=== PATIENT | female | born 1945 | race Caucasian/White ===

== ENCOUNTER 2019-08-12 07:06 | Observation (INO) | payer MEDICARE ==
[~2019-08-12] VITALS: Ht 149.9 cm; Wt 73.2 kg
[~2019-08-12 07:06] MED LIST: ACETAMINOPHEN500 MG PO; AMLO5 PO; CHOL10002 PO; CRUTCH2 USE; GABA100 PO; GABA300 PO; HYDACE5 PO; IBANDRONATE SO150 MG PO; IBUP400 PO; LEVSOD100; LEVSOD50 PO; LISI10 PO; LORA1 PO; LORA2 PO; METO25ER PO; MULVITMIND PO; Motion Sickness25 M1 PO; NAPR550 PO; ONDA4ODT MM; Omega 3 1,0001 EACH PO; PANT40 PO; PERI4 PO; PRIM50 PO; RXLORA1 PO; SERT50 PO; SIMV10 PO; SIMV20 PO; SIMV5 PO; UBID100 PO; Zofran Odt4 MG SL
[2019-08-12 08:05] LABS: BASOPHILS ABSOLUTE AUTO 0.04 K/mm3 (0.00-0.23); BASOPHILS PERCENT AUTO 0 % (0-2); EOSINOPHILS ABSOLUTE AUTO 0.25 K/mm3 (0.00-0.68); EOSINOPHILS PERCENT AUTO 3 % (0-6); Hematocrit 46.9 % (33.0-51.0); Hemoglobin 15.3 g/dL (11.5-16.0); IMMATURE GRAN ABSOLUTE AUTO 0.08 K/mm3 (0.00-0.10); IMMATURE GRAN PERCENT AUTO 1 % (0-1); LYMPHOCYTES ABSOLUTE AUTO 2.49 K/mm3 (0.84-5.20); LYMPHOCYTES PERCENT AUTO 26 % (21-46); MONOCYTES ABSOLUTE AUTO 0.41 K/mm3 (0.16-1.47); MONOCYTES PERCENT AUTO 4 % (4-13); Mean Corpuscular HGB Conc 32.6 g/dL (31.5-36.5); Mean Corpuscular Volume 89 fL (80-100); Mean Platelet Volume 10.6 fL (9.1-12.4); NEUTROPHILS ABSOLUTE AUTO 6.17 K/mm3 (1.96-9.15); NEUTROPHILS PERCENT AUTO 66 % (41-73); Platelet Count 271 K/mm3 (150-400); RDW Coefficient Variation 13.7 % (11.7-14.2); RDW Standard Deviation 44.5 fL (35.1-46.3); Red Blood Cell Count 5.28 M/mm3 (3.80-5.20); White Blood Cell Count 9.44 K/mm3 (4.00-11.30)
[2019-08-12 08:41] LABS: Alanine Aminotransfer (ALT/SGP 23 U/L (12-78); Albumin, Blood 4.1 g/dL (3.4-5.0); Alk Phos 94 U/L (50-136); Anion Gap 8 mmol/L (6-16); Aspartate Aminotrans (AST/SGOT 13 U/L (12-37); Bilirubin, Total 0.5 mg/dL (0.1-1.0); Blood Urea Nitrogen 23 mg/dL (8-24); Bun/Creatinine Ratio 27.7 (12.0-20.0); CO2, Blood 24 mmol/L (21-32); Calcium, Blood 9.4 mg/dL (8.5-10.1); Chloride, Blood 106 mmol/L (98-108); Creatinine, Blood 0.83 mg/dL (0.40-1.00); Globulin, Blood 4.2 g/dL (2.2-4.0); Glomerular Filtration Rate >60 (60-); Glucose, Blood 134 mg/dL (70-99); Potassium, Blood 3.9 mmol/L (3.5-5.5); Sodium, Blood 138 mmol/L (136-145); Total Protein, Blood 8.3 g/dL (6.4-8.2); Troponin I <0.015 ng/mL (0.000-0.040)
--- NOTE | 2019-08-12 10:34 | NUR ---
ASSUMED CARE RECEIVED REPORT FROM SREE SERRANO-ED @ 1010. PATIENT ARRIVED TO UNIT AT 1035 VIA STRETCHER, ADMITTED TO ROOM 301. ORIENTED TO CALL LIGHT SYSTEM AND RAPID RESPONSE PROTOCOL. BED IN LOWEST POSITION, PATIENT SETTLED TO BED. CALL LIGHT IS NEARBY.
[2019-08-12] MEDS ORDERED: Loratadine10 MG PO (10:44)
[2019-08-12] MEDS ORDERED: ZOLOFT50 MG PO (10:45)
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
--- NOTE | 2019-08-12 15:32 | NUR ---
PLACED ORDER FOR DVT PROPHYLAXIS (SCD), CHANGED DIET ORDER FROM NPO TO CARDIAC, AND NYSTATIN BID PER DR. MENDOZA
--- NOTE | 2019-08-12 19:27 | NUR ---
Shift Summary A/Ox4, pleasant and cooperative, independent in room. Answers questions and uses call light appropriately. Pt still complains of mild chest pain/pressure; however, denies need for pain. First part of stress test completed today, patient can have meals and lunch tomorrow (08/11) is to be held until the second part (scheduled for noon) is completed. No caffeine/coffee is to be administered after midnight. This has been passed on to shift leader for continuity of care. Tolerated PO well, appetite is good. No other concerns.
--- NOTE | 2019-08-13 04:33 | NUR ---
SHIFT SUMMARY- PT. A&OX4, INDEPENDENT IN ROOM. PLESANT AND COOPERATIVE WITH CARE. C/O HEADACHE AND MID CHEST PAIN 2/10 LAST NIGHT. MEDICATED WITH TYLENOL PER EMAR, WITH GOOD EFFECT. DENIED ANY COMPLAINTS THE REMAINDER OF THE SHIFT. SECOND PART OF STRESS TEST TO BE DONE TODAY. PT. RESTING COMFORTABLY IN BED NO APPARENT DISTRESS NOTED. CALL LIGHT WITHIN REACH AND SIDE RAILS UP X2. WILL CONT TO MONITOR.
[2019-08-13] MEDS ORDERED: CO Q10100 MG PO (14:43)
[2019-08-13] MEDS ORDERED: DILT180 PO (14:46)
[2019-08-13] MEDS ORDERED: PANT40 PO (14:47)
--- NOTE | 2019-08-13 15:07 | NUR ---
DISCHARGE INSTRUCTIONS GIVEN TO PATIENT WELL EDUCATIONAL MATERIAL REGARDING NEW MEDICATIONS. IV REMOVED AND TELE DISCONTINUED AND RETURNED TO PCU. ALL QUESTIONS ANSWERED. PATIENT IN ROOM AWAITING TO ARRIVE FOR TRANSPORT HOME.
== END 2019-08-13 15:29 | disposition home or self-care (01) ==
LOC: ER 07:06 → MEDS 07:07 → ENPENDDIS 08-13 13:09 → MEDS 08-13 15:29
PROVIDERS: Emergency Medicine; ADMIT Hospitalist
DX: R07.89 Other chest pain (principal); E03.9 Hypothyroidism, unspecified; F41.9 Anxiety disorder, unspecified; K21.9 Gastro-esophageal reflux disease without esophagitis; E78.5 Hyperlipidemia, unspecified; I12.9 Hypertensive chronic kidney disease with stage 1 through stage 4 chronic kidney disease, or unspecified chronic kidney disease; N18.3 Chronic kidney disease, stage 3 (moderate); Z88.1 Allergy status to other antibiotic agents; Z88.0 Allergy status to penicillin; Z88.2 Allergy status to sulfonamides; Z88.8 Allergy status to other drugs, medicaments and biological substances; Z79.899 Other long term (current) drug therapy
CPT/HCPCS: 36415; 71046; 78452; 80053; 83690; 84484; 85025; 93005; 93010; 93017; 93306; 99285-25; A9270-GY; A9500; G0378

== ENCOUNTER 2019-09-10 12:06 | Day surgery (SDC) | payer MEDICARE ==
[~2019-09-10] VITALS: Ht 149.9 cm; Wt 71.5 kg
[~2019-09-10 12:06] MED LIST changes: +CENTRUM SILVER1 EAC2 PO; +CO Q10100 MG PO; +Cartia Xt180 MG PO; +DILT180 PO; +EUTHYROX50 MCG PO; +Loratadine10 MG PO; +NAPR220 PO; +PRAVACHOL20 M1 PO; +Vitamin D2000 UNIT PO; +ZOLOFT50 MG PO
[2019-09-10] MEDS ORDERED: ALBU90OI INH (12:27)
--- NOTE | 2019-09-10 12:51 | NUR ---
Ambulatory in Day Surgery History, Chart, Medications and Allergies reviewed before start of procedure. Lungs clear T/O to Auscultation. Patient confirms NPO status and agrees with scheduled surgery. Pre-Op teaching done. Pt verbalizes understanding. Patient States Post-Procedure ride home has been arranged.
--- NOTE | 2019-09-10 14:07 | NUR ---
09/10/19 1407 Negin Cameron History, Chart, Medications and Allergies reviewed before start of procedure. PATIENT CONFIRMS NPO STATUS AND AGREES WITH SCHEDULED PROCEDURE. MONITOR INTACT WITH CONTINUOUS PULSE OXIMETRY AND INTERMITTENT BP. O2 VIA N/C INTACT THROUGHOUT SEDATION/PROCEDURE. 3-LEAD EKG REVIEWED WITH PHYSICIAN PRIOR TO START OF PROCEDURE. PATIENT DETERMINED TO BE ASA APPROPRIATE FOR PROPOFOL SEDATION PRIOR TO START OF PROCEDURE BY DR. VALENTE.
--- NOTE | 2019-09-10 15:08 | NUR ---
Patient up to Ambulate independently. Gait steady. Discharge instructions reviewed with patient. Patient verbalizes understanding. Copy given to patient to take home. Discharged via wheelchair to private car for ride home.
== END 2019-09-10 23:12 | disposition home or self-care (01) ==
LOC: ORSCMMR 12:06 → ORD 13:15 → ORSCMMR 23:12
PROVIDERS: Internal Medicine Gastroenterology
PROC: 0DB58ZX Excision of Esophagus, Via Natural or Artificial Opening Endoscopic, Diagnostic (ICD-10-PCS; principal; 2019-09-10 13:15)
PROC: 0DB68ZX Excision of Stomach, Via Natural or Artificial Opening Endoscopic, Diagnostic (ICD-10-PCS; principal; 2019-09-10 13:15)
DX: R13.10 Dysphagia, unspecified (principal); K31.7 Polyp of stomach and duodenum; K21.0 Gastro-esophageal reflux disease with esophagitis; E78.5 Hyperlipidemia, unspecified; E03.9 Hypothyroidism, unspecified; J45.909 Unspecified asthma, uncomplicated; F41.9 Anxiety disorder, unspecified; I12.9 Hypertensive chronic kidney disease with stage 1 through stage 4 chronic kidney disease, or unspecified chronic kidney disease; N18.3 Chronic kidney disease, stage 3 (moderate); Z87.891 Personal history of nicotine dependence; E66.9 Obesity, unspecified; Z68.32 Body mass index [BMI] 32.0-32.9, adult; Z79.899 Other long term (current) drug therapy
CPT/HCPCS: 88305; 88342; J2250; J2704; J7120

== ENCOUNTER 2021-05-02 06:13 | Day surgery (SDC) | payer MEDICARE ==
[~2021-05-02] VITALS: Ht 149.9 cm; Wt 71.7 kg
[~2021-05-02 06:13] MED LIST changes: +ALBU90OI INH
[2021-05-02] MEDS ORDERED: ALEN10 PO (06:55)
--- NOTE | 2021-05-02 06:58 | NUR ---
05/02/21 0658 Jose Antonio Borrero CALL LIGHT WITHIN REACH.
== END 2021-05-02 08:21 | disposition home or self-care (01) ==
LOC: ORSCSDS 06:13
PROVIDERS: Orthopaedic Surgery
PROC: 01N50ZZ Release Median Nerve, Open Approach (ICD-10-PCS; principal; 2021-05-02 07:30)
DX: G56.03 Carpal tunnel syndrome, bilateral upper limbs (principal); I10 Essential (primary) hypertension; F41.8 Other specified anxiety disorders; Z79.899 Other long term (current) drug therapy
CPT/HCPCS: J2704; J7120

== ENCOUNTER 2021-08-31 08:15 | Day surgery (SDC) | payer MEDICARE ==
[~2021-08-31] VITALS: Ht 149.9 cm; Wt 72.1 kg
[~2021-08-31 08:15] MED LIST changes: +ALEN10 PO
[2021-08-31] MEDS ORDERED: ROSU10TA (08:51)
--- NOTE | 2021-08-31 08:58 | NUR ---
08/31/21 0858 Jose Antonio Borrero CALL LIGHT WITHIN REACH. TETRACAINE AT 0845 PLEDGETT AT 0844
== END 2021-08-31 10:15 | disposition home or self-care (01) ==
LOC: ORSCSDS 08:15
PROVIDERS: Ophthalmology
PROC: 08RJ3JZ Replacement of Right Lens with Synthetic Substitute, Percutaneous Approach (ICD-10-PCS; principal; 2021-08-31 09:30)
DX: H25.13 Age-related nuclear cataract, bilateral (principal); J45.909 Unspecified asthma, uncomplicated; E78.5 Hyperlipidemia, unspecified; E78.00 Pure hypercholesterolemia, unspecified; R06.02 Shortness of breath; E03.9 Hypothyroidism, unspecified; I10 Essential (primary) hypertension; Z79.899 Other long term (current) drug therapy; E66.9 Obesity, unspecified; Z68.32 Body mass index [BMI] 32.0-32.9, adult
CPT/HCPCS: J2001; J2250; J3010; J3301; J7040; V2632

== ENCOUNTER 2021-11-02 06:41 | Day surgery (SDC) | payer MEDICARE ==
[~2021-11-02] VITALS: Ht 149.9 cm; Wt 72.2 kg
[~2021-11-02 06:41] MED LIST changes: +ROSU10TA
--- NOTE | 2021-11-02 07:04 | NUR ---
11/02/21 0704 Jose Antonio Borerro CALL LIGHT WITHIN REACH. TETRACAINE IN AT 0701 IN THE LEFT EYE AND PLEDGETT AT 0704
== END 2021-11-02 08:40 | disposition home or self-care (01) ==
LOC: ORSCSDS 06:41
PROVIDERS: Ophthalmology
PROC: 08RK3JZ Replacement of Left Lens with Synthetic Substitute, Percutaneous Approach (ICD-10-PCS; principal; 2021-11-02 08:00)
DX: H25.12 Age-related nuclear cataract, left eye (principal); Z96.1 Presence of intraocular lens; E03.9 Hypothyroidism, unspecified; I12.9 Hypertensive chronic kidney disease with stage 1 through stage 4 chronic kidney disease, or unspecified chronic kidney disease; N18.30 Chronic kidney disease, stage 3 unspecified; E78.00 Pure hypercholesterolemia, unspecified; E78.5 Hyperlipidemia, unspecified; K21.9 Gastro-esophageal reflux disease without esophagitis; Z79.899 Other long term (current) drug therapy
CPT/HCPCS: J2001; J2250; J3010; J3301; J7040; V2632

== ENCOUNTER → 2021-11-21 | Outpatient (CLI) | payer MEDICARE ==
[2021-11-21 11:07] LABS: Creatinine Urine 49.1 mg/dL (27.00-270.00)
[2021-11-21 11:24] LABS: Calcium, Urine 7.6 mg/dL (< 17.5); Calcium, Urine Calculation 159.6 mg/24hrs (42.0-353.0)
== END | disposition home or self-care (01) ==
LOC: LAB SHORT 07:00 → LAB 07:00 → LAB SHORT 09:18
PROVIDERS: Internal Medicine Endocrinology, Diabetes & Metabolism
DX: E21.3 Hyperparathyroidism, unspecified (principal)
CPT/HCPCS: 81050; 82340; 82570

== ENCOUNTER 2022-08-01 06:11 | Day surgery (SDC) | payer MEDICARE ==
[~2022-08-01] VITALS: Ht 149.9 cm; Wt 70.2 kg
[~2022-08-01 06:11] MED LIST changes: +VITAMIN D5000 UNIT PO; -Vitamin D2000 UNIT PO
--- NOTE | 2022-08-01 07:23 | NUR ---
08/01/22 0723 Rika Torres CALL LIGHT WITHIN REACH.
--- NOTE | 2022-08-01 08:29 | NUR ---
08/01/22 0829 Tammie Pearl LIDOCAINE 2% WITH EPI 1:100,000 MIXED 1:1 WITH NACL TO CREATE A LOCAL SOLUTION OF LIDOCAINE 1% WITH EPI 1:200,000.
[2022-08-01 10:41] VITALS: BP 114/60
--- NOTE | 2022-08-01 11:35 | NUR ---
08/01/22 1135 SURENDRA NEW PT O2 SAT S 95% UPON DC HR 96% UPON STANDING FROM CHAIR AND MOVING TO WC. NO COMPLAINT OF NAUSEA OR PAIN. 3 BACITRAICN PACKETS GIVEN PER PT REQUEST.
== END 2022-08-01 11:27 | disposition home or self-care (01) ==
LOC: ORSCSDS 06:11
PROVIDERS: Otolaryngology
PROC: 0GBN0ZZ Excision of Right Inferior Parathyroid Gland, Open Approach (ICD-10-PCS; principal; 2022-08-01 07:30)
DX: E21.3 Hyperparathyroidism, unspecified (principal); D35.1 Benign neoplasm of parathyroid gland; K21.9 Gastro-esophageal reflux disease without esophagitis; J45.909 Unspecified asthma, uncomplicated; I12.9 Hypertensive chronic kidney disease with stage 1 through stage 4 chronic kidney disease, or unspecified chronic kidney disease; N18.30 Chronic kidney disease, stage 3 unspecified; E03.9 Hypothyroidism, unspecified; F32.A Depression, unspecified; Z87.891 Personal history of nicotine dependence; Z79.899 Other long term (current) drug therapy
CPT/HCPCS: 83970; 88305; 88331; A9270; J1100; J2250; J2370; J2405; J2704; J2765; J3010; J7120

== ENCOUNTER 2024-08-06 10:11 | Emergency (ER) | payer OTHER ==
[~2024-08-06] VITALS: Ht 147.3 cm; Wt 52.2 kg
[2024-08-06 10:23] VITALS: BP 184/121
== END 2024-08-06 12:20 | disposition home or self-care (01) ==
LOC: ER 10:11
DX: M79.661 Pain in right lower leg (principal); E03.9 Hypothyroidism, unspecified; I10 Essential (primary) hypertension; M19.90 Unspecified osteoarthritis, unspecified site; K21.9 Gastro-esophageal reflux disease without esophagitis; J45.909 Unspecified asthma, uncomplicated; Z79.899 Other long term (current) drug therapy; Z88.0 Allergy status to penicillin; Z88.1 Allergy status to other antibiotic agents; Z88.2 Allergy status to sulfonamides; Z88.8 Allergy status to other drugs, medicaments and biological substances